=== PATIENT | male | born 1975 | race Caucasian/White ===

== ENCOUNTER 2016-10-29 11:53 | Observation (INO) | payer OTHER ==
[~2016-10-29] VITALS: Ht 182.9 cm; Wt 121.2 kg
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
[2016-10-29] MEDS ORDERED: THERAGRAN-M1 TAB PO (14:59)
[2016-10-29] MEDS ORDERED: FISH OIL 1,0001 EACH PO (14:59)
[2016-10-29] MEDS ORDERED: ASPIRIN325 MG PO (15:00)
[2016-10-30 04:10] LABS: BASOPHIL # 0.1 K/uL (0.0-0.2); BASOPHIL % 0.5 %; EOSINOPHIL # 0.1 K/uL (0.0-0.5); EOSINOPHIL % 0.5 %; HEMATOCRIT 42.3 % (37.0-53.0); IMMATURE GRANULOCYTE # 0.1 K/uL (0.0-0.3); IMMATURE GRANULOCYTE % 0.4 %; LYMPHOCYTE # 2.7 K/uL (0.8-4.0); LYMPHOCYTE % 22.3 %; MCH 31.7 pg (27.0-34.0); MCHC 33.1 gm/dL (32.0-36.5); MCV 95.9 fl (83.0-98.0); MONOCYTE # 1.1 K/uL (0.0-1.0); MONOCYTE % 9.3 %; MPV 11.2 fl (9.4-12.4); NRBC % 0 /100WBC (0-0.00); PLATELET COUNT 172 K/uL (150-450); RBC 4.41 M/uL (4.00-6.00); RDW-CV 13.3 % (11.9-14.6); WBC 11.9 K/uL (4.0-11.0)
[2016-10-30 04:26] LABS: ALBUMIN 3.2 gm/dL (3.5-5.0); ANION GAP 10.3 (10.0-19.0); BLOOD UREA NITROGEN 9 mg/dL (6-24); CALCIUM 8.1 mg/dL (8.5-10.5); CHLORIDE 104 mMol/L (96-110); CO2 30 mMol/L (22-32); CREATININE 0.9 mg/dL (0.6-1.3); ESTIMATED GFR (MDRD EQUATION) > 60; PHOSPHORUS 2.8 mg/dL (2.5-4.9); POTASSIUM 3.3 mMol/L (3.7-5.1); SODIUM 141 mMol/L (135-145)
[2016-10-30] MEDS ORDERED: NEOSPORIN1 PKT TOP (12:43)
[2016-10-30] MEDS ORDERED: PERCOCET 5-3251 EACH PO (12:44)
== END 2016-10-30 14:21 | disposition disaster alternative care site (69) ==
LOC: GACC 11:53 → GNTU 12:37
PROVIDERS: Physician Assistant; ADMIT Surgery
DX: S22.21XA Fracture of manubrium, initial encounter for closed fracture (principal); S30.811A Abrasion of abdominal wall, initial encounter; S70.319A Abrasion, unspecified thigh, initial encounter; S00.81XA Abrasion of other part of head, initial encounter; F10.129 Alcohol abuse with intoxication, unspecified; I10 Essential (primary) hypertension; F31.81 Bipolar II disorder; E78.5 Hyperlipidemia, unspecified; F17.210 Nicotine dependence, cigarettes, uncomplicated; Z98.52 Vasectomy status; V89.2XXA Person injured in unspecified motor-vehicle accident, traffic, initial encounter; Y90.8 Blood alcohol level of 240 mg/100 ml or more; Z98.890 Other specified postprocedural states
CPT/HCPCS: C1751; G0378; J3411; J7030